=== PATIENT | female | born 1950 | race Hispanic/Latino ===

== ENCOUNTER 2018-05-24 21:11 | Inpatient (IN) | payer MEDICARE ==
[~2018-05-24] VITALS: Ht 160 cm; Wt 63.3 kg
[2018-05-24] MEDS ORDERED: METHYLPREDNISOLONE SOD SUCC 125MG/2ML VIAL ONE (22:19)
[2018-05-24 22:23] LABS: BASOPHILS % (AUTO) 0.4 % (0.0-5.0); EOSINOPHILS % (AUTO) 0.5 % (0.0-8.0); HEMATOCRIT 46.3 % (36-48); LYMPHOCYTES % (AUTO) 16.5 % (21.0-51.0); MEAN CORPUSCULAR HEMOGLOBIN 35.4 pg (27.0-33.0); MEAN CORPUSCULAR HGB CONC 33.9 g/dL (32.0-36.0); MEAN CORPUSCULAR VOLUME 104.3 fL (79-99); MONOCYTES % (AUTO) 8.2 % (3.0-13.0); NEUTROPHILS % (AUTO) 74.4 % (40.0-77.0); PLATELET COUNT (AUTO) 274 K/uL (130-400); RED BLOOD CELL COUNT(AUTO) 4.44 MIL/uL (4.00-5.50); RED CELL DISTRIBUTION WIDTH 13.1 % (11.0-15.5); WHITE BLOOD COUNT (AUTO) 8.5 K/uL (4.8-10.8)
[2018-05-24 22:33] LABS: CREATININE 0.6 mg/dL (0.5-1.5); POTASSIUM 4.4 mmol/L (3.5-5.1)
[2018-05-24 22:36] LABS: INR 0.9 (0.85-1.15); PARTIAL THROMBOPLASTIN TIME 25.3 SEC (26.3-35.5); PROTHROMBIN TIME 9.5 SEC (9.6-11.6)
[2018-05-24 22:37] LABS: ALBUMIN 3.8 g/dL (3.5-5.0); BILIRUBIN,TOTAL 0.3 mg/dL (0.2-1.0); TOTAL PROTEIN, SERUM 7.2 g/dL (6.0-8.3)
[2018-05-24] MEDS ORDERED: IPRATROPIUM/ALBUTEROL SULFATE 3 ML SOLUTION IH ONE (22:37)
[2018-05-25] MEDS ORDERED: IPRATROPIUM/ALBUTEROL SULFATE 3 ML SOLUTION IH ONE (00:51)
[2018-05-25] MEDS ORDERED: NICARDIPINE IN NACL, ISO-OSM 200 ML IV ONE (02:13)
[2018-05-25] MEDS ORDERED: ONDANSETRON HCL 4 MG/2 ML VIAL IV PRN (02:30)
[2018-05-25] MEDS ORDERED: ACETAMINOPHEN 325 MG TAB PO PRN ×2 (02:30)
[2018-05-25] MEDS ORDERED: MORPHINE SULFATE 2 MG/ML 1ML SYG IV PRN (02:30)
[2018-05-25] MEDS: SODIUM CHLORIDE 0.9% 1000ML 1,000 ML IV SCH ×3 (02:30→22:03)
[2018-05-25] MEDS ORDERED: DOXYCYCLINE 100MG+NS 250ML 250 ML IV SCH ×2 (02:30→09:00)
[2018-05-25] MEDS ORDERED: METHYLPREDNISOLONE SOD SUCC 125MG/2ML VIAL IV SCH ×2 (02:30→14:30)
[2018-05-25] MEDS ORDERED: LEVOFLOXACIN 750 MG/D5W 150 ML 150 ML ONE (02:32)
[2018-05-25] MEDS ORDERED: SODIUM CHLORIDE 0.9% 1000ML 1,000 ML IV ONE (02:50)
[2018-05-25 02:53] LABS: ABG BASE EXCESS 3.1 mmol/L (-2.0-3.0); ABG PCO2 61 mmHg (32-45)
[2018-05-25] MEDS ORDERED: DOXYCYCLINE 100MG+NS 250ML 250 ML IV ONE (03:18)
[2018-05-25 03:30] VITALS: BP 132/77
[2018-05-25] MEDS ORDERED: [UNRECOGNIZED DRUG - OTHER] PO (03:42)
[2018-05-25] MEDS ORDERED: IPRA4AER IH (03:42)
[2018-05-25] MEDS ORDERED: PRED50TA2 PO (03:42)
[2018-05-25] MEDS ORDERED: METHYLPREDNISOLONE SOD SUCC 125MG/2ML VIAL ONE (05:23)
[2018-05-25] MEDS: IPRATROPIUM/ALBUTEROL SULFATE 3 ML SOLUTION IH SCH ×4 (06:54→23:47)
[2018-05-25 07:34] VITALS: BP 137/64
[2018-05-25] MEDS: ENOXAPARIN SODIUM 30 MG/0.3 ML SQ SCH ×2 (08:27→22:03)
[2018-05-25] MEDS: FAMOTIDINE/PF 20 MG/2 ML VIAL IV SCH ×2 (08:27→22:03)
[2018-05-25] MEDS ORDERED: NON-FORMULARY MEDICATION 1 EACH (Ipratropium/Albuterol Sulfate (Combivent Respimat Inhal S IH SCH (10:00)
[2018-05-25] MEDS: GUAIFENESIN-DM 200/20 MG 10 ML PO PRN ×2 (10:06→22:52)
[2018-05-25 11:13] VITALS: BP 123/62
[2018-05-25] MEDS: METHYLPREDNISOLONE SOD SUCC 125MG/2ML VIAL IV SCH ×2 (14:35→22:03)
[2018-05-25 16:11] VITALS: BP 120/73
[2018-05-25 20:00] VITALS: BP 139/64
[2018-05-25 23:59] VITALS: BP 123/50
[2018-05-26 04:00] VITALS: BP 128/60
[2018-05-26] MEDS: SODIUM CHLORIDE 0.9% 1000ML 1,000 ML IV SCH ×2 (05:59→21:43)
[2018-05-26] MEDS: METHYLPREDNISOLONE SOD SUCC 125MG/2ML VIAL IV SCH ×3 (05:59→21:43)
[2018-05-26 06:09] LABS: HEMATOCRIT 41.7 % (36-48); LYMPHOCYTES % (AUTO) 4.2 % (21.0-51.0); MEAN CORPUSCULAR HEMOGLOBIN 34.7 pg (27.0-33.0); MEAN CORPUSCULAR VOLUME 105.1 fL (79-99); MONOCYTES % (AUTO) 5.1 % (3.0-13.0); NEUTROPHILS % (AUTO) 90.7 % (40.0-77.0); PLATELET COUNT (AUTO) 204 K/uL (130-400); RED BLOOD CELL COUNT(AUTO) 3.97 MIL/uL (4.00-5.50); RED CELL DISTRIBUTION WIDTH 13.3 % (11.0-15.5)
[2018-05-26 06:25] LABS: CREATININE 0.6 mg/dL (0.5-1.5); POTASSIUM 4.7 mmol/L (3.5-5.1)
[2018-05-26] MEDS: IPRATROPIUM/ALBUTEROL SULFATE 3 ML SOLUTION IH SCH ×4 (07:09→23:10)
[2018-05-26 07:53] VITALS: BP 126/65
[2018-05-26] MEDS: ENOXAPARIN SODIUM 30 MG/0.3 ML SQ SCH ×2 (08:37→21:43)
[2018-05-26] MEDS: FAMOTIDINE/PF 20 MG/2 ML VIAL IV SCH ×2 (09:00→21:43)
--- NOTE | 2018-05-26 11:15 | NUR ---
PT AMBULATED ORDERED, PT WALKED DOWN THE STAIRS SINCE SHE STATES SHE HAS STAIRS BACK AT HOME SATURATION OF 78% PT SOB, DENIES CHEST PAIN PT IN WHEEL CHAIR BACK TO HER ROOM PLACED ON 2 LITERS NASAL CANULA SATING 94% , DENIES SOB OR CHEST PAIN NURSE PRACTITIONER NOTIFIED RT CALLED, AWARE OF HOME O2 EVAL
[2018-05-26 12:39] VITALS: BP 122/56
--- NOTE | 2018-05-26 13:29 | NUR ---
DCP CM met with pt discussed dc plans. Pt is independent prior to admission, lives at home with spouse. Denies any equipments/services. Pt feels safe to go back home, still drives, spouse able to assist with transportation and needs as necessary. DC plan to home once stable. Pt will possibly need O2 at home, pending home O2 eval, will work on DME if pt qualifies. CM to cont to follow up. Addendum: 05/26/18 at 1330 by TERRIE VERDE LVN CM Amended: Links added.
--- NOTE | 2018-05-26 14:42 | NUR ---
[facility] Note: [facility] pending approval and delivery for portable oxygen CM faxed script and clinicals to [facility]. Pt pending approval. Primary nurse aware. CM to cont to follow up.
[2018-05-26 16:19] VITALS: BP 128/68
[2018-05-26 19:05] VITALS: BP 127/61
[2018-05-26 23:02] VITALS: BP 133/58
[2018-05-27 03:10] VITALS: BP 120/60
[2018-05-27] MEDS: SODIUM CHLORIDE 0.9% 1000ML 1,000 ML IV SCH (04:30)
[2018-05-27] MEDS: IPRATROPIUM/ALBUTEROL SULFATE 3 ML SOLUTION IH SCH ×2 (05:15→11:15)
[2018-05-27] MEDS: METHYLPREDNISOLONE SOD SUCC 125MG/2ML VIAL IV SCH (06:20)
[2018-05-27 07:58] VITALS: BP 117/82
[2018-05-27] MEDS ORDERED: BUDESONIDE 0.5 MG/2 ML INH IH SCH (09:00)
--- NOTE | 2018-05-27 09:00 | NUR ---
CM Note: P approved oxygen portable and stationary, pending delivery Spoke to [facility] w/[facility]. Pt has approval. As per [employer] ticket already out for portable oxygen to be delivered in pt's room, stationary device will be delivered at pt's residence once pt arrives at home. Tech to coordinate and give instructions to pt. Primary nurse aware. CM to cont to follow up.
[2018-05-27] MEDS: FAMOTIDINE/PF 20 MG/2 ML VIAL IV SCH (09:37)
[2018-05-27] MEDS: ENOXAPARIN SODIUM 30 MG/0.3 ML SQ SCH (09:38)
--- NOTE | 2018-05-27 11:45 | NUR ---
pt verbalizes understanding of home o2, delivery staff for home o2, present pt denies any questions on it
[2018-05-27 12:00] VITALS: BP 123/62
--- NOTE | 2018-05-27 12:00 | NUR ---
pt d/c denies sob , denies chest pain iv removed, catheter intact d/c education given by admitt , discharge nurse
== END 2018-05-27 12:15 | disposition home or self-care (01) | DRG 189 ==
LOC: EDH 21:11 → OBSVTOIN 05-25 02:10 → EDHIP 05-25 02:10 → 4AH 05-25 03:16
PROVIDERS: ADMIT Hospitalist; ATTEND Hospitalist
DX: J96.01 Acute respiratory failure with hypoxia (principal); J44.1 Chronic obstructive pulmonary disease with (acute) exacerbation; E87.2 Acidosis; F17.210 Nicotine dependence, cigarettes, uncomplicated; J96.02 Acute respiratory failure with hypercapnia; Z66 Do not resuscitate; Z90.710 Acquired absence of both cervix and uterus; Z99.81 Dependence on supplemental oxygen; Z88.0 Allergy status to penicillin
CPT/HCPCS: 36415; 36600; 71045; 80048; 80053; 82803; 83880; 85025; 85378; 85610; 85730; 87040; 93005; 93970; 94640; 94664; 94760; 99291; G0378; J1650; J1956; J2930; J3490; J7030

== ENCOUNTER → 2020-09-29 | Outpatient (CLI) | payer MEDICARE ==
[~2020-09-29] MED LIST: IPRA4AER IH; PRED50TA2 PO; [UNRECOGNIZED DRUG - OTHER] PO
== END | disposition home or self-care (01) ==
LOC: RAH 14:29
PROVIDERS: ATTEND Otolaryngology
DX: J32.8 Other chronic sinusitis (principal); J34.3 Hypertrophy of nasal turbinates
CPT/HCPCS: 70486

== ENCOUNTER 2021-01-26 07:59 | Emergency (ER) | payer MEDICARE ==
[~2021-01-26] VITALS: Ht 165.1 cm; Wt 63.5 kg
[2021-01-26] MEDS ORDERED: KETOROLAC 30MG VIAL (30MG/ML) IVP ONE (08:30)
[2021-01-26] MEDS ORDERED: ONDANSETRON 4MG INJ IVP ONE (08:30)
[2021-01-26] MEDS ORDERED: MORPHINE 2 MG SYG IVP ONE (08:30)
[2021-01-26 08:42] LABS: BASOPHILS % (AUTO) 0.7 % (0.0-5.0); EOSINOPHILS % (AUTO) 1.3 % (0.0-8.0); HEMATOCRIT 41.8 % (36-48); LYMPHOCYTES % (AUTO) 9.3 % (21.0-51.0); MEAN CORPUSCULAR HEMOGLOBIN 32.4 pg (27.0-33.0); MEAN CORPUSCULAR HGB CONC 33.3 g/dL (32.0-36.0); MEAN CORPUSCULAR VOLUME 97.4 fL (79-99); NEUTROPHILS % (AUTO) 80.2 % (40.0-77.0); PLATELET COUNT (AUTO) 204 K/uL (130-400); RED BLOOD CELL COUNT(AUTO) 4.29 MIL/uL (4.00-5.50); RED CELL DISTRIBUTION WIDTH 12.3 % (11.0-15.5); WHITE BLOOD COUNT (AUTO) 7.5 K/uL (4.8-10.8)
[2021-01-26 08:54] LABS: CREATININE 0.4 mg/dL (0.5-1.5); POTASSIUM 4.5 mmol/L (3.5-5.1)
[2021-01-26 08:59] LABS: ALBUMIN 3.6 g/dL (3.5-5.0); BILIRUBIN,TOTAL 0.3 mg/dL (0.2-1.0); TOTAL PROTEIN, SERUM 7.2 g/dL (6.0-8.3)
[2021-01-26] MEDS ORDERED: DIAZEPAM 5 MG/ML 2 ML SYG IVP SCH (10:30)
[2021-01-26 10:45] VITALS: BP 114/48
[2021-01-26] MEDS ORDERED: IBUP-2070 PO (11:17)
[2021-01-26] MEDS ORDERED: D-ME118S47 PO (11:17)
[2021-01-26] MEDS ORDERED: DIAZ2TAB PO (11:17)
[2021-01-26] MEDS ORDERED: GUAIFENESIN/DEXTROMETHORPHAN 1 EACH TAB.SR.12H PO SCH (11:30)
== END 2021-01-26 11:35 | disposition home or self-care (01) ==
LOC: EDH 07:59
DX: M62.830 Muscle spasm of back (principal); R05.9 Cough, unspecified; J44.9 Chronic obstructive pulmonary disease, unspecified; Z90.710 Acquired absence of both cervix and uterus; Z79.1 Long term (current) use of non-steroidal anti-inflammatories (NSAID); Z79.52 Long term (current) use of systemic steroids; Z79.899 Other long term (current) drug therapy; Z88.0 Allergy status to penicillin
CPT/HCPCS: 36415; 74176; 80053; 85025; 96374; 96375; 99285; J1885; J2405; J3360

== ENCOUNTER 2022-09-02 10:44 | Emergency (ER) | payer MEDICARE ==
[~2022-09-02] VITALS: Ht 152.4 cm; Wt 48.1 kg
[~2022-09-02 10:44] MED LIST changes: +D-ME118S47 PO; +DIAZ2TAB PO; +IBUP-2070 PO
[2022-09-02 11:25] LABS: BASOPHILS % (AUTO) 0.4 % (0.0-5.0); EOSINOPHILS % (AUTO) 0.1 % (0.0-8.0); HEMATOCRIT 42.6 % (36-48); LYMPHOCYTES % (AUTO) 5.4 % (21.0-51.0); MEAN CORPUSCULAR HEMOGLOBIN 33.3 pg (27.0-33.0); MEAN CORPUSCULAR HGB CONC 32.9 g/dL (32.0-36.0); MEAN CORPUSCULAR VOLUME 101.2 fL (79-99); MONOCYTES % (AUTO) 13.6 % (3.0-13.0); NEUTROPHILS % (AUTO) 80.3 % (40.0-77.0); PLATELET COUNT (AUTO) 229 K/uL (130-400); RED BLOOD CELL COUNT(AUTO) 4.21 MIL/uL (4.00-5.50); RED CELL DISTRIBUTION WIDTH 11.4 % (11.0-15.5); WHITE BLOOD COUNT (AUTO) 8.1 K/uL (4.8-10.8)
[2022-09-02 11:49] LABS: ALBUMIN 3.2 g/dL (3.5-5.0); CREATININE 0.4 mg/dL (0.5-1.5); MAGNESIUM 1.8 mg/dL (1.80-2.40); TOTAL PROTEIN, SERUM 7.2 g/dL (6.0-8.3)
[2022-09-02] MEDS ORDERED: IPRATROPIUM/ALBUTEROL SULFATE 3 ML SOLUTION IH PRN (12:00)
[2022-09-02] MEDS ORDERED: SOLU-MEDROL 40MG VIAL IVP ONE (12:00)
[2022-09-02 12:26] LABS: ABG BASE EXCESS 2.4 mmol/L (-2.0-3.0); ABG OXYGEN SATURATION 96.2 % (95.0-99.0); ABG PCO2 66 mmHg (32-45)
[2022-09-02] MEDS ORDERED: LACTATED RINGERS 1000ML 1,000 ML IV SCH (13:30)
[2022-09-02 14:06] LABS: ABG BASE EXCESS 6.5 mmol/L (-2.0-3.0); ABG HCO3 34.9 mmol/L (21.0-28.0); ABG OXYGEN SATURATION 91.7 % (95.0-99.0); ABG PCO2 67 mmHg (32-45)
[2022-09-02] MEDS ORDERED: PRED20TA3 PO (14:26)
[2022-09-02] MEDS ORDERED: AZIT500T PO (14:26)
[2022-09-02 15:27] VITALS: BP 134/53
[2022-09-07] MEDS ORDERED: BUPR-113 PO (18:44)
[2022-09-07] MEDS ORDERED: DONE-51 PO (18:44)
[2022-09-07] MEDS ORDERED: AZIT500T4 PO (18:44)
[2022-09-07] MEDS ORDERED: ZOLP10TA2 PO (18:44)
[2022-09-07] MEDS ORDERED: FLUT1BLS15 IH (18:44)
[2022-09-07] MEDS ORDERED: TRAZ-185 PO (18:44)
[2022-09-07] MEDS ORDERED: [UNRECOGNIZED DRUG - OTHER] (18:45)
== END 2022-09-02 15:33 | disposition home or self-care (01) ==
LOC: EDH 10:44
DX: J20.9 Acute bronchitis, unspecified (principal); J44.0 Chronic obstructive pulmonary disease with (acute) lower respiratory infection; E86.0 Dehydration; J96.10 Chronic respiratory failure, unspecified whether with hypoxia or hypercapnia; Z79.52 Long term (current) use of systemic steroids; Z88.0 Allergy status to penicillin; Z79.899 Other long term (current) drug therapy; Z98.890 Other specified postprocedural states
CPT/HCPCS: 99291; 96361; 83735; 84484 ×2; 80053; 82803 ×2; 85025; 87040 ×2; 83605 ×2; 36415; 71045; 96372; 93005; 36600 ×3; 94640; 94660; J7120; J2920

== ENCOUNTER 2023-04-29 12:08 | Emergency (ER) | payer MEDICARE ==
[~2023-04-29] VITALS: Ht 165.1 cm; Wt 47.6 kg
[~2023-04-29 12:08] MED LIST changes: +BUPR-113 PO; -D-ME118S47 PO; -DIAZ2TAB PO; +DONE-51 PO; +FLUT1BLS15 IH; -IBUP-2070 PO; -IPRA4AER IH; +LEVO-70 PO; +PRED20TA3 PO; -PRED50TA2 PO; +TRAZ-185 PO; +ZOLP10TA2 PO; +[UNRECOGNIZED DRUG - OTHER]; -[UNRECOGNIZED DRUG - OTHER] PO
[2023-04-29] MEDS ORDERED: IPRATROPIUM/ALBUTEROL SULFATE 3 ML SOLUTION IH ONE (12:30)
[2023-04-29] MEDS ORDERED: SOLU-MEDROL 125MG VIAL IVP ONE (12:30)
[2023-04-29 12:40] LABS: BASOPHILS # (AUTO) 0.07 K/uL (0.00-0.20); BASOPHILS % (AUTO) 0.9 % (0.0-5.0); EOSINOPHILS # (AUTO) 0.03 K/uL (0.00-0.70); EOSINOPHILS % (AUTO) 0.4 % (0.0-8.0); IMMATURE GRANULOCYTE ABSOLUTE 0.02 K/uL (0-1); LYMPHOCYTES # (AUTO) 1.2 K/uL (1.0-4.8); LYMPHOCYTES % (AUTO) 14.6 % (21.0-51.0); MEAN CORPUSCULAR HGB CONC 32.8 g/dL (32.0-36.0); MEAN CORPUSCULAR VOLUME 97.7 fL (79-99); MONOCYTES # (AUTO) 0.8 K/uL (0.1-1.0); MONOCYTES % (AUTO) 9.6 % (3.0-13.0); NEUTROPHILS # (AUTO) 6.1 K/uL (1.8-7.7); NEUTROPHILS % (AUTO) 74.3 % (40.0-77.0); PLATELET COUNT (AUTO) 213 K/uL (130-400); RED BLOOD CELL COUNT(AUTO) 4.81 MIL/uL (4.00-5.50); RED CELL DISTRIBUTION WIDTH 11.7 % (11.0-15.5); WHITE BLOOD COUNT (AUTO) 8.2 K/uL (4.8-10.8)
[2023-04-29 12:47] VITALS: PULSE 125; RESP 24
[2023-04-29 12:48] LABS: CREATININE 0.4 mg/dL (0.5-1.5); POTASSIUM 4.3 mmol/L (3.5-5.1)
[2023-04-29 12:55] LABS: ALBUMIN 3.5 g/dL (3.5-5.0); BILIRUBIN,TOTAL 0.6 mg/dL (0.2-1.0)
[2023-04-29 14:07] LABS: B-TYPE NATRIURETIC PEPTIDE 10 pg/mL (0-100)
[2023-04-29] MEDS ORDERED: PRED20TA3 PO (16:10)
[2023-04-29] MEDS ORDERED: GUAI5LIQ13 PO (16:10)
[2023-04-29] MEDS ORDERED: LEVO-70 PO (16:10)
[2023-04-29 16:24] VITALS: BP 138/57; PULSE 117; RESP 22; O2SAT 97
== END 2023-04-29 17:18 | disposition home or self-care (01) ==
LOC: EDH 12:08
DX: J44.1 Chronic obstructive pulmonary disease with (acute) exacerbation (principal); J96.10 Chronic respiratory failure, unspecified whether with hypoxia or hypercapnia; F17.200 Nicotine dependence, unspecified, uncomplicated; Z79.899 Other long term (current) drug therapy; Z98.890 Other specified postprocedural states; Z90.710 Acquired absence of both cervix and uterus
CPT/HCPCS: 99285; 96374; 71045; 84484; 80053; 83880; 85025; 36415; 93005; 94640; J2930